=== PATIENT | female | born 2000 | race Caucasian/White ===

== ENCOUNTER 2023-02-08 10:16 | Emergency (ER) | payer OTHER ==
[~2023-02-08] VITALS: Ht 170.2 cm; Wt 59.0 kg
[2023-02-08] MEDS ORDERED: ACET-2708 MT (10:53)
[2023-02-08] MEDS ORDERED: CYCL10TA21 MT (10:53)
[2023-02-08] MEDS ORDERED: CYCLOBENZAPRINE 10MG TABLET PO ONE (11:00)
[2023-02-08] MEDS ORDERED: NAPROXEN 250MG TABLET PO ONE (11:00)
[2023-02-08 11:42] VITALS: BP 119/75
== END 2023-02-08 11:43 | disposition home or self-care (01) ==
LOC: ER 10:16
DX: S09.8XXA Other specified injuries of head, initial encounter (principal); S16.1XXA Strain of muscle, fascia and tendon at neck level, initial encounter; S39.012A Strain of muscle, fascia and tendon of lower back, initial encounter; V43.52XA Car driver injured in collision with other type car in traffic accident, initial encounter; Y93.89 Activity, other specified; Y92.410 Unspecified street and highway as the place of occurrence of the external cause
CPT/HCPCS: 81025; 99283